=== PATIENT | female | born 1985 | race Caucasian/White ===

== ENCOUNTER 2016-08-02 16:55 | Emergency (ER) | payer OTHER ==
[~2016-08-02] VITALS: Ht 167.6 cm; Wt 65.0 kg
[2016-08-02 18:41] VITALS: BP 113/69; PULSE 81; RESP 16; TEMP 98.5; O2SAT 99
--- NOTE | 2016-08-02 19:00 | PD ---
HPI Chief Complaint: Anxiety Time Seen by Provider: 18:55 Travel History International Travel<30 days: No Contact w/Intl Traveler<30days: No Traveled to known affect area: No History of Present Illness HPI 31-year-old female presents to the emergency Department voluntarily for psychiatric evaluation. The patient states that over the past 2 weeks she's had worsening anxiety. States that she has been unable to sleep due to stressful dreams. Patient states that she has been having dreams that her is cheating on her and then she wakes up and believes that they are true and becomes very angry and upset. The patient states that she does have a history of depression for which she was previously treated with Lexapro but stopped this medication 2 months ago because she did not want to take medication for her depression. States that she has instead been going to regular counseling with a psychologist, last saw her psychologist 5 days ago. She denies any suicidal or homicidal ideations. Denies any attempts to harm herself, no ingestion of substances. Denies any drug or alcohol use. The patient states that her and her family convinced her to come in today because she is not acting like herself, she is becoming more paranoid and anxious. The patient's reports that she wakes up in the middle of the night and paces for hours. The patient's states that the patient's father had a history of schizophrenia and he is concerned that she may also have this condition. The patient denies any medical complaints. Denies , last menstrual period 1 week ago. No other complaints. PFSH Past Medical History Depression: Yes ?: Unknown Social History Alcohol Use: No Tobacco Use: No Substance Use: No Allergies-Medications (Allergen,Severity, Reaction): Coded Allergies: Estrogens (Verified Allergy, Severe, 08/02/16) Tramadol (Verified Allergy, Severe, 08/02/16) Reported Meds & Prescriptions Reported Meds & Active Scripts Active No Active Prescriptions or Reported Medications Review of Systems Except as stated in HPI: all other systems reviewed are Neg Physical Exam Narrative GENERAL: Well-nourished and well-developed pleasant patient in no acute distress who is nontoxic appearing. SKIN: Warm and dry. HEAD: Normocephalic and atraumatic. EYES: No injection, drainage, or hyphema noted. PERRLA. EOMI. ENT: No nasal drainage noted. Oropharynx is clear. NECK: Supple and the trachea is midline. CARDIOVASCULAR: Regular rate and rhythm. RESPIRATORY: Breath sounds are equal bilaterally with no accessory muscle use, wheezing, rhonchi, or crackles. GASTROINTESTINAL: Abdomen is soft, non-tender, and nondistended. MUSCULOSKELETAL: No obvious deformities, swelling, cyanosis, or ecchymosis is present throughout the upper and lower extremities. Patient has full range of motion without any signs of neurovascular compromise. NEUROLOGICAL: Awake, alert, and oriented. Normal speech and gait. Cranial nerves are grossly intact. PSYCHIATRIC: No delusional thought processes. No hallucinations. Data Data Last Documented VS Vital Signs Date Time Temp Pulse Resp B/P Pulse Ox O2 Delivery O2 Flow Rate FiO2 08/03/16 06:42 79 18 120/69 99 Room Air 08/02/16 18:41 98.5 Orders Complete Blood Count With Diff (08/02/16 18:54) Comprehensive Metabolic Panel (08/02/16 18:54) Drug Screen, Random Urine (08/02/16 18:54) Ed Urine Pregnancytest Poc (08/02/16 18:54) Alcohol (Ethanol) (08/02/16 18:54) Psych Screen (08/02/16 18:54) Diet Regular Basic (08/03/16 Breakfast) Labs Laboratory Tests Test 08/02/16 19:20 White Blood Count 8.9 TH/MM3 Red Blood Count 4.10 MIL/MM3 Hemoglobin 12.3 GM/DL Hematocrit 36.4 % Mean Corpuscular Volume 88.8 FL Mean Corpuscular Hemoglobin 30.0 PG Mean Corpuscular Hemoglobin 33.8 % Concent Red Cell Distribution Width 13.3 % Platelet Count 280 TH/MM3 Mean Platelet Volume 9.2 FL Neutrophils (%) (Auto) 61.1 % Lymphocytes (%) (Auto) 27.5 % Monocytes (%) (Auto) 10.0 % Eosinophils (%) (Auto) 1.1 % Basophils (%) (Auto) 0.3 % Neutrophils # (Auto) 5.4 TH/MM3 Lymphocytes # (Auto) 2.4 TH/MM3 Monocytes # (Auto) 0.9 TH/MM3 Eosinophils # (Auto) 0.1 TH/MM3 Basophils # (Auto) 0.0 TH/MM3 CBC Comment DIFF FINAL Differential Comment Sodium Level 141 MEQ/L Potassium Level 3.5 MEQ/L Chloride Level 105 MEQ/L Carbon Dioxide Level 28.4 MEQ/L Anion Gap 8 MEQ/L Blood Urea Nitrogen 5 MG/DL Creatinine 0.59 MG/DL Estimat Glomerular Filtration 117 ML/MIN Rate Random Glucose 86 MG/DL Calcium Level 8.7 MG/DL Total Bilirubin 0.3 MG/DL Aspartate Amino Transf 15 U/L (AST/SGOT) Alanine Aminotransferase 21 U/L (ALT/SGPT) Alkaline Phosphatase 53 U/L Total Protein 7.3 GM/DL Albumin 4.0 GM/DL Urine Opiates Screen NEG Urine Barbiturates Screen NEG Urine Amphetamines Screen NEG Urine Benzodiazepines Screen NEG Urine Cocaine Screen NEG Urine Cannabinoids Screen NEG Ethyl Alcohol Level LESS THAN 3 MG/DL MDM Medical Decision Making Medical Screen Exam Complete: Yes Emergency Medical Condition: Yes Differential Diagnosis Differential: Depression versus adjustment reaction versus anxiety versus PTSD versus psychosis NOS versus mood disorder NOS versus substance induced mood disorder versus ODD versus adjustment reaction versus schizophrenia versus bipolar disorder versus schizoaffective versus electrolyte abnormality Narrative Course Patient presents voluntarily for psychiatric evaluation. Physical examination and vital signs are essentially unremarkable. Patient has no medical complaints to report. She is here on a voluntary basis and is not a harm to herself or others. Therefore I do not feel that the patient meets Markham act criteria. Psych screen has been ordered. If the laboratory results are unremarkable, the patient will be medically cleared for psychiatric evaluation and disposition. Diagnosis Primary Impression: Mood disorder Scripts No Active Prescriptions or Reported Meds Lacy Holden Aug 02, 2016 19:00
[2016-08-02 20:02] LABS: AMPHETAMINE, URINE NEG (NEG); BARBITURATES, URINE NEG (NEG); COCAINE, URINE NEG (NEG)
[2016-08-02 20:17] LABS: AUTOMATED NEUTROPHIL # 5.4 TH/MM3 (1.8-7.7); BASOPHIL % 0.3 % (0.0-2.0); EOSINOPHIL # 0.1 TH/MM3 (0-0.4); EOSINOPHIL % 1.1 % (0.0-4.0); HEMATOCRIT 36.4 % (35.0-46.0); HEMO FLAGS DIFF FINAL; LYMPH % 27.5 % (9.0-44.0); LYMPHOCYTE # 2.4 TH/MM3 (1.0-4.8); MEAN CELL VOLUME 88.8 FL (80.0-100.0); MEAN CORPUSCULAR HGB CONC 33.8 % (32.0-36.0); NEUT % 61.1 % (16.0-70.0); PLATELET COUNT 280 TH/MM3 (150-450); RED CELL DISTRIBUTION WIDTH 13.3 % (11.6-17.2); WHITE BLOOD COUNT 8.9 TH/MM3 (4.0-11.0)
[2016-08-02 20:32] LABS: ANION GAP 8 MEQ/L (5-15); AST (GOT) 15 U/L (15-37); BICARBONATE 28.4 MEQ/L (21.0-32.0); BLOOD UREA NITROGEN 5 MG/DL (7-18); CHLORIDE 105 MEQ/L (98-107); GLOMERULAR FILTRATION RATE 117 ML/MIN (>89); POTASSIUM 3.5 MEQ/L (3.5-5.1); SODIUM (NA) 141 MEQ/L (136-145)
[2016-08-02 20:36] LABS: ALKALINE PHOSPHATASE 53 U/L (45-117); ALT (GPT) 21 U/L (10-53); TOTAL BILIRUBIN ADULT 0.3 MG/DL (0.2-1.0)
[2016-08-02 21:05] VITALS: BP 119/80; PULSE 80; RESP 20; O2SAT 99
[2016-08-02 22:07] VITALS: BP 129/69; PULSE 79; RESP 18; O2SAT 98
[2016-08-03 02:25] VITALS: BP 118/69; PULSE 80; RESP 18; O2SAT 98
[2016-08-03 06:42] VITALS: BP 120/69; PULSE 79; RESP 18; O2SAT 99
--- NOTE | 2016-09-08 20:58 | HHI.PYPN ---
Subjective Remarks Patient was seen today for reevaluation, She was found in the recreational area of the unit watching TV, she states she is not talking to me "because I fired you", still very paranoid and disorganized, refusing to take medications. Review of Systems Other No somatic complains Objective Alert: Yes [place]: Person, Place, Date Mood: Angry Affect: Labile Memory Intact: Immediate, Recent, Remote Hallucinations: Other (None) Delusions: Yes Delusion Type: Paranoid Suicidal: Ideation (denies) Homicidal: Ideation (denies) Insight/Judgement absent Assessment & Plan Problem List: (1) Schizophrenia ICD Code: F20.9 Assessment & Plan Estimated LOS: days Justification for Cont. Inpt. Patient is acutely psychotic. Tu Chandra MD Sep 08, 2016 20:58
== END 2016-08-03 10:44 | disposition home or self-care (01) ==
LOC: NEPB 16:55 → NEPJ 08-03 10:44
DX: F39 Unspecified mood [affective] disorder (principal); F41.8 Other specified anxiety disorders
CPT/HCPCS: 80053; 80307; 80320; 84703; 85025; 99283

== ENCOUNTER 2016-08-31 11:45 | Inpatient (IN) | payer OTHER ==
[~2016-08-31] VITALS: Ht 167.6 cm; Wt 71.4 kg
[2016-08-31 13:15] VITALS: BP 120/68; PULSE 92; RESP 16; TEMP 98.6; O2SAT 98
--- NOTE | 2016-08-31 14:11 | PD ---
HPI Chief Complaint: Psychiatric Symptoms Time Seen by Provider: 14:05 Travel History International Travel<30 days: No Contact w/Intl Traveler<30days: No Traveled to known affect area: No History of Present Illness HPI 31-year-old female that presents to the ED for evaluation of psych evaluation. Patient has a history of mood disorder and apparently her look at her dairy and apparently there was some bizarre statements and they were concerned. Apparently patient was Markham acted by the physician but there is no signature on the Markham act and this unfortunate makes the Markham act invalid. She has no medical issues. She denies any pain of any kind. She denies any medical symptoms. Per patient she wants to stay here voluntarily to get evaluated as she wants to get to the bar as to why she was brought here. She denies any homicidal or suicidal ideation. No hallucinations. No drugs or alcohol. Her symptoms appear to be mild. Per Markham act apparently she does have some psychotic thoughts but they only manifesting her dairy. Unclear as to the length of symptoms. She denies any of this. She takes no medications. PFSH Past Medical History Depression: Yes Diabetes: No Diminished Hearing: No Seizures: No ?: Not Social History Alcohol Use: No Tobacco Use: No Substance Use: No (PT DENIES) Allergies-Medications (Allergen,Severity, Reaction): Coded Allergies: Estrogens (Verified Allergy, Severe, 08/31/16) Per pt. Tramadol (Verified Allergy, Severe, 08/31/16) Per pt. Reported Meds & Prescriptions Reported Meds & Active Scripts Active No Active Prescriptions or Reported Medications Review of Systems General / Constitutional: No: Fever, Chills, Weight Gain, Weight Loss, Other Eyes: No: Diploplia, Blurred Vision, Photophobia, Drainage, Redness, Foreign Body Sensation, Pain, Tearing, Blind Spots, Visual changes, Blindness, Other HENT: No: Headaches, Vertigo, Lightheadedness, Sore Throat, Rhinitis, Rhinorrhea, Congestion, Nosebleed, Neck Stiffness, Neck Pain, Masses, Gingival Bleeding, Dental Difficulties, Ear Discharge, Earache, Other Cardiovascular: No: Chest Pain or Discomfort, Palpitations, Irregular Rhythm, Tachycardia, Diaphoresis, Syncope, Dyspnea on exertion, Varicosities, Edema, Cyanosis, Varicosities, Phlebitis, Claudication, Other Respiratory: No: Cough, Shortness of Breath, Wheezing, Sneezing, Orthopnea, Hemoptysis, Stridor, Night Sweats, Pleuritic Pain, Other Gastrointestinal: No: Nausea, Vomiting, Diarrhea, Abdominal Pain, Hematemesis, Hematochezia, Constipation, Changes in Bowel Habits, Indigestion, Dysphagia, Loss of Appetite, Other Genitourinary: No: Urgency, Frequency, Dysuria, Nocturia, Hematuria, Decreased Urinary Output, Oliguria, Hesitancy, Dribbling, Incontinence, Pelvic Pain, Flank Pain, Dyspareunia, Discharge, Dysmenorrhea, Menorrhagia, Metorrhagia, Vaginal Bleeding, Other Musculoskeletal: No: Myalgias, Arthralgias, Limited ROM, Weakness, Cramping, Edema, Pain, Atrophy, Other Skin: No Rash, No Itching, No Dryness, No Lumps, No Hives, No Change in Pigmentation, No Change in nails, No Alopecia, No Lesions, No Breast Lumps, No Breast Tenderness, No Breast Swelling, No Other Neurologic: No: Weakness, Dizziness, Syncope, Focal Abnormalities, Coordination Problem, Tremor, Ataxia, Headache, Change in Mentation, Slurred Speech, Paresthesia, Incontinence, Seizures, Sensory Disturbance, Other Psychiatric: Positive: Disorder of Thought (??? per markham act), No: Anxiety, Depression, Suicidal Ideations, Mood Disorder, Substance Abuse, Homicidal Ideation, Other Endocrine: No: Heat Intolerance, Cold Intolerance, Polyuria, Polydipsia, Other Hematologic/Lymphatic: No: Easy Bruising, Lymph Node Enlargement, Other Physical Exam Narrative GENERAL: SKIN: Warm and dry. HEAD: Atraumatic. Normocephalic. EYES: Pupils equal and round. No scleral icterus. No injection or drainage. ENT: No nasal bleeding or discharge. Mucous membranes pink and moist. Tongue is midline. No uvula deviation. NECK: Trachea midline. No JVD. CARDIOVASCULAR: Regular rate and rhythm. No murmurs, S3, S4. RESPIRATORY: No accessory muscle use. Clear to auscultation. Breath sounds equal bilaterally. GASTROINTESTINAL: Abdomen soft, non-tender, nondistended. Hepatic and splenic margins not palpable. MUSCULOSKELETAL: Extremities without clubbing, cyanosis, or edema. No obvious deformities. Full range of motion of the upper and lower extremities bilaterally. 2+ pulses bilaterally. NEUROLOGICAL: Awake and alert. No obvious cranial nerve deficits. Motor grossly within normal limits. Five out of 5 muscle strength in the arms and legs. Normal speech. PSYCHIATRIC: Appropriate mood and affect; insight and judgment normal. Data Data Last Documented VS Vital Signs Date Time Temp Pulse Resp B/P Pulse Ox O2 Delivery O2 Flow Rate FiO2 08/31/16 13:15 98.6 92 16 120/68 98 Room Air Orders Complete Blood Count With Diff (08/31/16 13:08) Comprehensive Metabolic Panel (08/31/16 13:08) Psych Screen (08/31/16 13:08) Drug Screen, Random Urine (08/31/16 13:08) Alcohol (Ethanol) (08/31/16 13:08) Labs Laboratory Tests Test 08/31/16 13:15 White Blood Count 12.4 TH/MM3 Red Blood Count 4.56 MIL/MM3 Hemoglobin 13.9 GM/DL Hematocrit 41.1 % Mean Corpuscular Volume 90.0 FL Mean Corpuscular Hemoglobin 30.5 PG Mean Corpuscular Hemoglobin 33.9 % Concent Red Cell Distribution Width 13.6 % Platelet Count 383 TH/MM3 Mean Platelet Volume 8.6 FL Neutrophils (%) (Auto) 83.9 % Lymphocytes (%) (Auto) 9.8 % Monocytes (%) (Auto) 5.8 % Eosinophils (%) (Auto) 0.1 % Basophils (%) (Auto) 0.4 % Neutrophils # (Auto) 10.4 TH/MM3 Lymphocytes # (Auto) 1.2 TH/MM3 Monocytes # (Auto) 0.7 TH/MM3 Eosinophils # (Auto) 0.0 TH/MM3 Basophils # (Auto) 0.0 TH/MM3 CBC Comment DIFF FINAL Differential Comment Sodium Level 138 MEQ/L Potassium Level 3.7 MEQ/L Chloride Level 102 MEQ/L Carbon Dioxide Level 27.6 MEQ/L Anion Gap 8 MEQ/L Blood Urea Nitrogen 6 MG/DL Creatinine 0.62 MG/DL Estimat Glomerular Filtration 111 ML/MIN Rate Random Glucose 88 MG/DL Calcium Level 9.7 MG/DL Total Bilirubin 0.4 MG/DL Aspartate Amino Transf 14 U/L (AST/SGOT) Alanine Aminotransferase 23 U/L (ALT/SGPT) Alkaline Phosphatase 56 U/L Total Protein 7.7 GM/DL Albumin 4.2 GM/DL Urine Opiates Screen NEG Urine Barbiturates Screen NEG Urine Amphetamines Screen NEG Urine Benzodiazepines Screen NEG Urine Cocaine Screen NEG Urine Cannabinoids Screen NEG Ethyl Alcohol Level LESS THAN 3 MG/DL MDM Medical Decision Making Medical Screen Exam Complete: Yes Emergency Medical Condition: Yes Medical Record Reviewed: Yes Interpretation(s) CBC & BMP Diagram 08/31/16 13:15 tox negative Differential Diagnosis Depression versus suicidal ideation versus anxiety versus adjustment disorder versus mood disorder versus bipolar disorder versus schizophrenia versus paranoid disorder versus psychosis versus substance abuse versus alcohol abuse versus alcohol induced psychosis versus homicidality addition versus cutting versus personality disorder Narrative Course 31-year-old female that presents to the ED for evaluation of psych. Patient was properly examined and was found to have no signs of acute medical distress. Patient apparently was Markham acted but it appears to be invalid secondary to her signatures. She does note that she wants to stay voluntarily for evaluation. Labs were drawn. Patient will be medically clear. Okay to be seen by psych. Mental health screening was discussed with the patient. Diagnosis Primary Impression: Mood disorder Scripts No Active Prescriptions or Reported Meds Alberto Guadalupe Aug 31, 2016 14:10
[2016-08-31 15:19] LABS: AUTOMATED NEUTROPHIL # 10.4 TH/MM3 (1.8-7.7); BASOPHIL % 0.4 % (0.0-2.0); EOSINOPHIL % 0.1 % (0.0-4.0); HEMATOCRIT 41.1 % (35.0-46.0); HEMO FLAGS DIFF FINAL; LYMPH % 9.8 % (9.0-44.0); LYMPHOCYTE # 1.2 TH/MM3 (1.0-4.8); MEAN CORPUSCULAR HEMOGLOBIN 30.5 PG (27.0-34.0); MEAN CORPUSCULAR HGB CONC 33.9 % (32.0-36.0); MONO % 5.8 % (0.0-8.0); NEUT % 83.9 % (16.0-70.0); PLATELET COUNT 383 TH/MM3 (150-450); RED BLOOD COUNT 4.56 MIL/MM3 (4.00-5.30); RED CELL DISTRIBUTION WIDTH 13.6 % (11.6-17.2); WHITE BLOOD COUNT 12.4 TH/MM3 (4.0-11.0)
[2016-08-31 15:24] LABS: AMPHETAMINE, URINE NEG (NEG); BARBITURATES, URINE NEG (NEG); COCAINE, URINE NEG (NEG)
[2016-08-31 15:32] LABS: ALT (GPT) 23 U/L (10-53); ANION GAP 8 MEQ/L (5-15); AST (GOT) 14 U/L (15-37); BICARBONATE 27.6 MEQ/L (21.0-32.0); BLOOD UREA NITROGEN 6 MG/DL (7-18); CHLORIDE 102 MEQ/L (98-107); GLOMERULAR FILTRATION RATE 111 ML/MIN (>89); POTASSIUM 3.7 MEQ/L (3.5-5.1); SODIUM (NA) 138 MEQ/L (136-145)
[2016-08-31 15:35] LABS: ALKALINE PHOSPHATASE 56 U/L (45-117); TOTAL BILIRUBIN ADULT 0.4 MG/DL (0.2-1.0)
[2016-08-31 16:14] VITALS: BP 138/95; PULSE 102; RESP 20; TEMP 97.6; O2SAT 98
--- NOTE | 2016-08-31 18:03 | PD ---
History of Present Illness Chief Complaint: Psychiatric Symptoms Time Seen by Provider: 16:30 Travel History International Travel<30 Days: No Contact w/Intl Traveler<30days: No Known affected area: No Legal Status Legal Status: Markham Act History of Present Illness: History of Present Illness 31-year-old female with no reported psychiatric history that presents to the ED for evaluation of psych evaluation. The patient was brought to Ed under a BA initiated by her PCP, Dr. Khan who has been her PCP x 5 years. He did not see the patient but read a copy of her journal which was brought in by her and he had enough concern for the patient that he initiated the BA. I later received a call from Dr. Macdonald who states that Dr. Khan consulted him on this case and he felt the patient needed to be seen by psychiatry JORY. Dr. Macdonald has an appointment with the patient on Wednesday. As per EMR review this patient was seen in ED in July on a voluntary basis for evaluation of reported extreme anxiety, not sleeping for a few weeks, constant thoughts of her suspicion that her was cheating on him. At the time of that evaluation she did not meet criteria for BA and was discharged from the Ed. Patient is seen in J pod. Awake, alert and oriented. She is mildly agitated. She perseveres on the BA not being binding and legal and she repeats several times " I am not suicidal or homicidal'. She admits to not sleeping for several days but goes back to " I'm not suicidal or homicidal". I have reviewed with her her journal entries in which she talks about being watched, being photographed and about being followed by sex trafficking ring, being in danger of being abducted, She claims that all the writings are her account of dreams that she has. There are also some entries about waiting for Prince Rausch and a magazine. Again she claims that these are her dreams. I spoke with the patient's with her verbal consent. He reports that she has not been sleeping well for the past weeks, she paces most of the night sleeping 1- 2 hours, she beliefs that she is Prince Rausch's daughter and was switched at , that she beliefs she was going to be abducted on Wednesday and planned to confront her boss today and commit suicide. She was agitated this morning and left for work at 5:30 and doesn't begin work until 8:30. He was frightened as she brought some mirror installer fluid in the house to light a candle.He also became concerned with his safety as one night he woke up when she tried to take off his C pap mask while he was sleeping. I am informed by Ashwini sommers RN that patient told her that she was a [place] spy and that someone was trying to destroy her journal. PFSH Past Medical History Depression: Yes Diabetes: No Patient Takes Glucophage: No Diminished Hearing: No Kidney Stones: Yes (Hx per pt.) Seizures: No Tetanus Vaccination: > 5 Years Influenza Vaccination: No ?: Not LMP: 08/25/16 : 0 Para: 0 Miscarriage: 0 : 0 Past Surgical History Surgical History: No Previous Surgery Psychiatric History Psychiatric History Hx Psychiatric Treatment: Was prescribed Lexapro for 4 years but has not taken it in several weeks. History of Inpatient Treatment: No Guns or firearms in home: No Social History x 5 years. Lives with her . 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 Hx Alcohol Use: No (Rarely. ) Hx Tobacco Use: No (Patient denies. ) Hx Substance Use: No (PT DENIES) Hx of Substance Use Treatment: No Family Psychiatric History Father dx w schizophrenia as per records Allergies-Medications (Allergen,Severity, Reaction): Coded Allergies: Estrogens (Verified Allergy, Severe, 08/31/16) Per pt. Tramadol (Verified Allergy, Severe, 08/31/16) Per pt. Reported Meds & Prescriptions Reported Meds & Active Scripts Active No Active Prescriptions or Reported Medications Review of Systems Except as stated in HPI: all other systems reviewed are Neg Psychiatric: COMPLAINS OF: Anxiety, Delusions MDM Medical Decision Making Medical Record Reviewed: Yes Assessment/Plan 31 year old female who is placed under a BA for potential for harm to self or others. At this time the patient presents with not sleeping, fixed delusions that she is being followed by a sex trafficking ring, that she is going to be abducted and that she is the daughter of Prince Rausch. Patient is denying this and reports it as dreams but is visibly impacted by these thoughts or dreams. The patient initially accepted voluntary admission but then asked to leave. She is in need of inpatient treatment for further observation, initiate medication and stabilization. Orders Complete Blood Count With Diff (08/31/16 13:08) Comprehensive Metabolic Panel (08/31/16 13:08) Psych Screen (08/31/16 13:08) Drug Screen, Random Urine (08/31/16 13:08) Alcohol (Ethanol) (08/31/16 13:08) Diet Regular Basic (08/31/16 Dinner) Results Vital Signs Date Time Temp Pulse Resp B/P Pulse Ox O2 Delivery O2 Flow Rate FiO2 08/31/16 16:14 97.6 102 20 138/95 98 Room Air 08/31/16 13:15 98.6 92 16 120/68 98 Room Air Laboratory Tests Test 08/31/16 13:15 White Blood Count 12.4 Red Blood Count 4.56 Hemoglobin 13.9 Hematocrit 41.1 Mean Corpuscular Volume 90.0 Mean Corpuscular Hemoglobin 30.5 Mean Corpuscular Hemoglobin 33.9 Concent Red Cell Distribution Width 13.6 Platelet Count 383 Mean Platelet Volume 8.6 Neutrophils (%) (Auto) 83.9 Lymphocytes (%) (Auto) 9.8 Monocytes (%) (Auto) 5.8 Eosinophils (%) (Auto) 0.1 Basophils (%) (Auto) 0.4 Neutrophils # (Auto) 10.4 Lymphocytes # (Auto) 1.2 Monocytes # (Auto) 0.7 Eosinophils # (Auto) 0.0 Basophils # (Auto) 0.0 CBC Comment DIFF FINAL Differential Comment Sodium Level 138 Potassium Level 3.7 Chloride Level 102 Carbon Dioxide Level 27.6 Anion Gap 8 Blood Urea Nitrogen 6 Creatinine 0.62 Estimat Glomerular Filtration 111 Rate Random Glucose 88 Calcium Level 9.7 Total Bilirubin 0.4 Aspartate Amino Transf 14 (AST/SGOT) Alanine Aminotransferase 23 (ALT/SGPT) Alkaline Phosphatase 56 Total Protein 7.7 Albumin 4.2 Urine Opiates Screen NEG Urine Barbiturates Screen NEG Urine Amphetamines Screen NEG Urine Benzodiazepines Screen NEG Urine Cocaine Screen NEG Urine Cannabinoids Screen NEG Ethyl Alcohol Level LESS THAN 3 Diagnosis Primary Impression: Delusional disorder Additional Impression: Mood disorder Admitting Information Admitting Physician Requests: Admit (Dr. Vasques) Prescriptions No Active Prescriptions or Reported Meds Problem Qualifiers Essie Laura Aug 31, 2016 18:02
[2016-08-31] MEDS ORDERED: MAGNESIUM HYDROXIDE SUSP 30 ML CUP PO PRN (18:15)
[2016-08-31] MEDS ORDERED: ACETAMINOPHEN 325 MG TAB PO PRN (18:15)
[2016-08-31] MEDS ORDERED: ALUMINUM/MAGNESIUM/SIMETH 30 ML CUP PO PRN (18:15)
[2016-08-31] MEDS ORDERED: QUEtiapine FUMARATE 100 MG TAB PO SCH (21:00)
[2016-08-31 21:35] VITALS: BP 154/72; PULSE 105; RESP 18; TEMP 98.2; O2SAT 97
[2016-09-01 05:38] VITALS: BP 117/68; PULSE 87; RESP 16; TEMP 97.6; O2SAT 87
[2016-09-01 07:59] LABS: ANION GAP 8 MEQ/L (5-15); BICARBONATE 27.8 MEQ/L (21.0-32.0); BLOOD UREA NITROGEN 9 MG/DL (7-18); CHLORIDE 104 MEQ/L (98-107); GLOMERULAR FILTRATION RATE 90 ML/MIN (>89); POTASSIUM 3.9 MEQ/L (3.5-5.1); SODIUM (NA) 140 MEQ/L (136-145)
[2016-09-01 08:09] LABS: HDL CHOLESTEROL 69.2 MG/DL (40.0-60.0); LDL CHOLESTEROL 46 MG/DL (0-99)
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
[2016-09-01 15:57] LABS: HEMOGLOBIN A1a 1.5 %; HEMOGLOBIN A1b 1.4 %; HEMOGLOBIN Ao 87.3 %; HEMOGLOBIN LA1C 1.6 %
[2016-09-01] MEDS ORDERED: QUEtiapine FUMARATE 100 MG TAB PO ONE (17:00)
[2016-09-02 06:28] VITALS: BP 129/82; PULSE 105; RESP 18; TEMP 97.7; O2SAT 98
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
[2016-09-02] MEDS ORDERED: HALOPERIDOL LACTATE 5 MG/ML AMP IM PRN (13:45)
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
[2016-09-02 18:59] VITALS: BP 135/74; PULSE 100; RESP 18; TEMP 98.3; O2SAT 97
[2016-09-03 05:00] VITALS: BP 125/85; PULSE 92; RESP 18; TEMP 98.9; O2SAT 98
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
[2016-09-03 18:45] VITALS: BP 124/79; PULSE 98; RESP 18; TEMP 98.1; O2SAT 98
[2016-09-04 05:11] VITALS: BP 125/73; PULSE 108; RESP 18; TEMP 98.2; O2SAT 98
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
[2016-09-04 18:52] VITALS: BP 128/86; PULSE 98; RESP 18; TEMP 98.3; O2SAT 99
[2016-09-05 05:57] VITALS: BP 114/77; PULSE 89; RESP 17; TEMP 98.3; O2SAT 98
--- NOTE | 2016-09-05 15:52 | HHI.PYPN ---
Subjective Remarks Pt seen and discussed with staff. She continues to refuse food due to delusions that staff is trying to poison her. She states that she drinks from the sink in her room because it won't make her sick. She states that she is a small person and hospital food will make her ill. She is very paranoid and thought process is illogical. She continues to refuse medications stating that she does not need them. No SI/HI. Objective Alert: Yes [place]: Person Mood: Angry Affect: Other (euphoric) Memory Intact: Immediate, Recent Hallucinations: Other (she denies) Delusions: Yes Delusion Type: Paranoid, Other (persecutory) Suicidal: Ideation (she denies) Homicidal: Ideation (she denies) Insight/Judgement very poor Vitals/IOs Vital Signs Date Time Temp Pulse Resp B/P Pulse Ox O2 Delivery O2 Flow Rate FiO2 09/05/16 05:57 98.3 89 17 114/77 98 Assessment & Plan Problem List: (1) Unspecified psychosis ICD Code: F29 Assessment & Plan Continue to encourage medication compliance and oral intake. Will monitor closely for signs of dehydration. Will check labs. Estimated LOS: days Justification for Cont. Inpt. impairments in reality construction. Beryl Hollingsworth MD Sep 05, 2016 15:52
[2016-09-05 18:50] VITALS: BP 126/82; PULSE 89; RESP 17; TEMP 98.4; O2SAT 99
[2016-09-06 05:32] VITALS: BP 118/68; PULSE 84; RESP 17; TEMP 98; O2SAT 100
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
[2016-09-06 18:30] VITALS: BP 131/64; PULSE 102; RESP 20; TEMP 98.8; O2SAT 97
[2016-09-07 05:04] VITALS: BP 119/76; PULSE 92; RESP 18; TEMP 98; O2SAT 99
[2016-09-07 17:27] VITALS: BP 115/22; PULSE 100; RESP 17; TEMP 98.3
[2016-09-08 05:34] VITALS: BP 113/72; PULSE 84; RESP 17; TEMP 98.7; O2SAT 99
[2016-09-08 20:47] VITALS: BP 110/70; PULSE 86; RESP 18; TEMP 97.5; O2SAT 98
[2016-09-09 05:09] VITALS: BP 107/73; PULSE 83; RESP 17; TEMP 98.4; O2SAT 100
--- NOTE | 2016-09-09 08:36 | HHI.PYPN ---
Subjective Remarks Late entry, entered by mistake on Visit [id number]: Patient was seen today for reevaluation, She was found in the recreational area of the unit watching TV, she states she is not talking to me "because I fired you", still very paranoid and disorganized, refusing to take medications. Review of Systems Other No Somatic complain Objective Alert: Yes [place]: Person, Place, Date Mood: Calm Affect: Flat Memory Intact: Immediate, Recent Hallucinations: Other (she denies) Delusions: Yes Delusion Type: Paranoid, Other (persecutory) Suicidal: Ideation (she denies) Homicidal: Ideation (she denies) Insight/Judgement poor Vitals/IOs Vital Signs Date Time Temp Pulse Resp B/P Pulse Ox O2 Delivery O2 Flow Rate FiO2 09/09/16 05:09 98.4 83 17 107/73 100 Assessment & Plan Problem List: (1) Unspecified psychosis ICD Code: F29 Assessment & Plan Estimated LOS: days Justification for Cont. Inpt. Patient is acutely psychotic Tu Chandra MD Sep 09, 2016 08:36
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
[2016-09-09 18:35] VITALS: BP 136/83; PULSE 107; RESP 18; TEMP 97.9; O2SAT 100
[2016-09-10 06:17] VITALS: BP 112/68; PULSE 83; RESP 16; TEMP 98.2
--- NOTE | 2016-09-10 13:18 | HHI.PYPN ---
Subjective Remarks Patient was seen today for psychiatric evaluation along with nurse in charge, the patient refused to speak with me stating that she fired me yesterday and I am not longer her psychiatrist. She says that she doesn't trust me and she doesn't trust anybody in the unit. Patient became physically agitated, but she was verbally de-escalate by behavioral health assistances. In the unit the patient has been increasingly guarded, paranoid toward staff, is sleeping with doors lack with a chair behind the door, yesterday she was pacing back and forward in the unit halls, at times was seen talking to herself. Consistently refusing medications. She was taken to [place] [facility] today which she was deemed by Clay Molder incompetent to make decisions and required to continue involuntary psychiatric admission for stabilization. I had a long conversation with her in which he added that he has been dealing with patient paranoia for about 4 months now. He explains that her disorganized behavior, speech, thought , paranoia and delusions of being the daughter of [place], being cheated by her , and being spied are relatively new. But, now that he has been thinking, the patient in the last 6 month has been obsessed with jealousy, hyper gnosticism, more talkative than usual, sleeping very poorly at night, spending a lot of time thinking in bed before going to sleep. He thought that this was kind of normal behavior, but he clarifies that he was a different behavior than what he met her and was a huge change for were depressed and she was a year ago. After a family meeting in recent days, her brothers and other members of her family stated that this presentation is very similar to her father's symptomatology of schizophrenia. Review of Systems Other No somatic symptoms Objective Alert: Yes [place]: Person, Place, Date Mood: Calm Affect: Flat Memory Intact: Immediate, Recent Hallucinations: Other (she denies) Delusions: Yes Delusion Type: Paranoid, Other (persecutory) Suicidal: Ideation (she denies) Homicidal: Ideation (she denies) Insight/Judgement poor insight Vitals/IOs Vital Signs Date Time Temp Pulse Resp B/P Pulse Ox O2 Delivery O2 Flow Rate FiO2 09/10/16 06:17 98.2 83 16 112/68 09/09/16 18:35 100 Intake and Output 09/09/16 09/09/1617 08:00 16:00 00:00 Intake Total 360 ml Balance 360 ml Assessment & Plan Problem List: (1) Unspecified psychosis ICD Code: F29 (2) Schizophreniform disorder Assessment & Plan: On psychiatric evaluation patient is still remain acutely psychotic, with prominent paranoia towards staff, toward her , toward her family, toward food. At times agitated, with disorganized behavior and speech, a marked impairment in reality testing and difficulties to differentiate from what is real to what is not and progressive loss of ego boundaries. Patient has been consistently refusing medication stating that the medication is poison for her and we are trying to overdose her. Today in [place] she was deemed no capacity to make decisions and a [facility] medical claims representative would be making decisions in her best interest. By a conversation with her , and other information in the record, patient has been presenting obsessive/delusional ideas now for about 6 months, with a prodromal state consistent in hyperreligiosity, decreased sensitivity to rejection, severe anxiety, decreased need to sleep, isolation, increased jealousy with her and bizarre ideas about [place], and [place]. Given her significant family history of schizophrenia in her father's line, including her father and 2 uncles, her current presentation, and also collateral information, the diagnosis schizophrenia is highly suspicious in this patient, but due to the lack of precision in the duration of the picture, will is still consider as a primary diagnosis of schizophreniform disorder. Will continue Risperdal 1 mg liquid, to increase the possibility of compliance, twice a day, with the goal of potential transition and to either Risperdal Consta or Invega Sustenna. Will continue with Haldol 5 mg IM every 8 hours when necessary aggressive behavior and agitation Close monitor of behavior and mood, continue encouraging the patient to be compliance with medications and to integrate in group activities Patient will be with [facility] medical claims representative ICD Code: F20.81 Assessment & Plan Estimated LOS: days Justification for Cont. Inpt. Patient is to continue psychiatric hospitalization for stabilization and safety. Tu Chandra MD Sep 10, 2016 13:18
--- NOTE | 2016-09-10 13:24 | HHI.PYPN ---
Subjective Remarks Patient was seen today for psychiatric reevaluation, patient was calm, cooperative, pleasant, she is states that she has been feeling well, denies depression, denies anxiety, denies perceptual disturbances, she is fully oriented 3, she denies suicidal or homicidal ideation, she denies visual and auditory hallucinations. No behavioral dysregulation, agitation, disruptive behavior, that has been an issue in the past, reported by the nurses in the last 24 hours. Patient has been showing good response to psychotropics, compliant with hemodialysis and her medications. Patient states that she is motivated to follow medical recommendations and take her medications and be discharge to [facility]. Review of Systems Other No somatic complaints Objective Alert: Yes [place]: Person, Place, Date Mood: Calm Affect: Flat Memory Intact: Immediate, Recent Hallucinations: Other (she denies) Delusions: Yes Delusion Type: Paranoid, Other (persecutory) Suicidal: Ideation (she denies) Homicidal: Ideation (she denies) Insight/Judgement fair Vitals/IOs Vital Signs Date Time Temp Pulse Resp B/P Pulse Ox O2 Delivery O2 Flow Rate FiO2 09/10/16 06:17 98.2 83 16 112/68 09/09/16 18:35 100 Intake and Output 09/09/16 09/09/16 09/10/16 08:00 16:00 00:00 Intake Total 360 ml Balance 360 ml Assessment & Plan Problem List: (1) Unspecified psychosis ICD Code: F29 (2) Schizophreniform disorder Assessment & Plan: Patient has showed good response to psychotropics, no behavioral or mood dysregulation, agitation or aggressive behavior observed or reported. Will continue Risperdal 3 mg twice a day. ICD Code: F20.81 Assessment & Plan Estimated LOS: days Justification for Cont. Inpt. Coordination of a safe discharge, awaiting placement to [facility]. Tu Chandra MD Sep 10, 2016 13:24
[2016-09-10 18:11] VITALS: BP 109/75; PULSE 104; RESP 17; TEMP 98.4; O2SAT 97
[2016-09-11 05:36] VITALS: BP 127/71; PULSE 82; RESP 18; TEMP 98.2; O2SAT 100
[2016-09-11 19:41] VITALS: BP 133/68; PULSE 99; RESP 18; TEMP 98; O2SAT 97
[2016-09-12 05:25] VITALS: BP 111/74; PULSE 83; RESP 18; TEMP 98.1; O2SAT 99
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
[2016-09-12 19:56] VITALS: BP 122/75; PULSE 88; RESP 18; TEMP 96.1; O2SAT 98
[2016-09-13 05:49] VITALS: BP 110/73; PULSE 76; RESP 18; TEMP 98.4; O2SAT 100
[2016-09-13 18:36] VITALS: BP 116/72; PULSE 86; RESP 18; TEMP 98.6; O2SAT 100
[2016-09-14 06:32] VITALS: BP 104/73; PULSE 78; RESP 17; TEMP 98; O2SAT 97
--- NOTE | 2016-09-14 12:33 | EKG ---
Date Performed: 09/13/2016 Time Performed: 18:30:48 PTAGE: 31 years EKG: Sinus rhythm POSSIBLE RIGHT VENTRICULAR CONDUCTION DELAY BORDERLINE ECG NO PREVIOUS TRACING DOCTOR: Dg Burgos Interpretating Date/Time 09/14/2016 12:30:22
[2016-09-14 19:52] VITALS: BP 122/69; PULSE 92; RESP 18; TEMP 97.9; O2SAT 98
[2016-09-15 05:59] VITALS: BP 111/72; PULSE 82; RESP 19; TEMP 98; O2SAT 99
[2016-09-15 21:21] VITALS: BP 116/76; PULSE 72; RESP 19; TEMP 97.9; O2SAT 99
[2016-09-16 05:54] VITALS: BP 115/81; PULSE 76; RESP 16; TEMP 97.7; O2SAT 98
[2016-09-16 18:00] VITALS: BP 112/69; PULSE 81; RESP 16; TEMP 98.2; O2SAT 100
[2016-09-17 05:42] VITALS: BP 111/69; PULSE 71; RESP 18; TEMP 98.6; O2SAT 99
[2016-09-17 18:47] VITALS: BP 119/76; PULSE 80; RESP 18; TEMP 98.2; O2SAT 100
[2016-09-18 05:26] VITALS: BP_SYST 105; BP_SYST 108; BP_DIAS 64; BP_DIAS 67; PULSE 74; PULSE 83; RESP 16; RESP 18; TEMP 98.5; O2SAT 92; O2SAT 99
--- NOTE | 2016-09-18 07:20 | MB ---
cc: RADHA CHEN DATE OF CONSULTATION: 09/17/2016 REASON FOR CONSULTATION Abnormal electrocardiogram, clearance for psychiatric meds. BRIEF HISTORY This is a 31-year-old female without prior history of any significant medical problems. She has no prior history of any heart disease. She presents with progressive anxiety and paranoia. There was discussion about initiating Geodon in addition to Risperdal. An electrocardiogram was performed which was read as sinus rhythm with some possible right ventricular conduction delay. We are consulted for further recommendations regarding clearance for administration of meds. ALLERGIES 1. ESTROGENS. 2. TRAMADOL. FAMILY HISTORY Denies any family history of early coronary artery disease or sudden cardiac . SOCIAL HISTORY Lives in [place]. Denies any alcohol, tobacco or drug use. REVIEW OF SYSTEMS A 12-point review of systems was performed and otherwise negative except as noted in the history of present illness. PHYSICAL EXAMINATION VITAL SIGNS: Temperature 97, blood pressure 117/68 mmHg. GENERAL: Alert and oriented x3, in no acute distress. HEENT: Pupils reactive to light and accommodation. Extraocular movements are intact. NECK: No jugular venous distention. No thyromegaly. No lymphadenopathy. No carotid bruits. LUNGS: Clear to auscultation bilaterally. CARDIOVASCULAR: Regular rate and rhythm without murmurs, rubs or gallops. ABDOMEN: Nontender, nondistended. Good bowel sounds. No hepatosplenomegaly. EXTREMITIES: No clubbing, cyanosis or edema. Good peripheral pulses. NEUROLOGIC: Cranial nerves intact. Motor and sensory grossly intact. LABORATORY Unable to view labs now. The electronic medical record ([employer]) is down. ELECTROCARDIOGRAM Electrocardiogram shows sinus rhythm. QTC is measured at 378 milliseconds. ASSESSMENT Abnormal electrocardiogram. PLAN Electrocardiogram is reviewed. The right ventricular conduction delay is mentioned because there is R prime in V1 which is not clinically significant. The most concerning interaction related to Geodon administration in conjunction is prolongation of the QT interval. She has no congenital conduction disease. There are no contraindications at this point based on her current QTC interval for the administration of psychiatric medication. Would recommend daily EKG for the first three days of administration. If there is prolongation of the QTC greater than 500 milliseconds then discontinuation of the combination of drugs should be undertaken. There is no need for any further cardiovascular evaluation or workup. MD SILVIA Vegas/SHANNAN /12:10 PM /7:02 AM
[2016-09-18 19:28] VITALS: BP 116/74; PULSE 88; RESP 16; TEMP 98.6; O2SAT 100
--- NOTE | 2016-09-18 22:36 | EKG ---
Date Performed: 09/18/2016 Time Performed: 11:06:03 PTAGE: 31 years EKG: Sinus rhythm POSSIBLE RIGHT VENTRICULAR CONDUCTION DELAY BORDERLINE ECG PREVIOUS TRACING : 09/13/2016 18.30 DOCTOR: Yumiko Flores Interpretating Date/Time 09/18/2016 22:34:34
[2016-09-19 06:31] VITALS: BP 104/64; PULSE 77; RESP 18; TEMP 97.7; O2SAT 99
[2016-09-19] MEDS: ZIPRASIDONE HCL 20 MG CAP PO SCH ×3 (09:00→21:00)
[2016-09-19] MEDS ORDERED: ZIPRASIDONE MESYLATE 20 MG VIAL IM PRN (13:00)
[2016-09-19 19:00] VITALS: BP 120/72; PULSE 97; RESP 18; TEMP 98.3; O2SAT 98
--- NOTE | 2016-09-19 19:39 | EKG ---
Date Performed: 09/19/2016 Time Performed: 09:51:57 PTAGE: 31 years EKG: Sinus rhythm POSSIBLE RIGHT VENTRICULAR CONDUCTION DELAY Since previous tracing, no significant change noted PARKER LINA ECG PREVIOUS TRACING : 09/18/2016 11.06 DOCTOR: Thuan Baer Interpretating Date/Time 09/19/2016 19:38:17
[2016-09-20 06:31] VITALS: BP 95/64; PULSE 84; RESP 18; TEMP 97.5; O2SAT 98
--- NOTE | 2016-09-20 14:37 | EKG ---
Date Performed: 09/20/2016 Time Performed: 08:46:35 PTAGE: 31 years EKG: Sinus rhythm NORMAL ECG INTERPRETATION BASED ON A DEFAULT AGE OF 38 YEARS Compared to prior tracing no significan t change PREVIOUS TRACING : 09/19/2016 09.51 DOCTOR: Thuan Baer Interpretating Date/Time 09/20/2016 14:36:05
[2016-09-20 18:00] VITALS: BP 123/74; PULSE 75; RESP 18; TEMP 98.8
[2016-09-20] MEDS: ZIPRASIDONE HCL 20 MG CAP PO SCH (21:00)
[2016-09-21 06:03] VITALS: BP 119/79; PULSE 82; RESP 18; TEMP 98.2; O2SAT 99
[2016-09-21 19:58] VITALS: BP 118/85; PULSE 102; RESP 18; TEMP 98.5; O2SAT 100
[2016-09-21] MEDS: ZIPRASIDONE HCL 20 MG CAP PO SCH (21:00)
[2016-09-22] MEDS ORDERED: ZIPRASIDONE MESYLATE 20 MG VIAL IM PRN (14:30)
[2016-09-22] MEDS: ZIPRASIDONE HCL 20 MG CAP PO SCH (16:24)
[2016-09-22 19:04] VITALS: BP 126/83; PULSE 77; RESP 18; TEMP 98; O2SAT 100
[2016-09-23 06:29] VITALS: BP 108/57; PULSE 66; RESP 18; TEMP 98.5; O2SAT 99
[2016-09-23] MEDS: ZIPRASIDONE HCL 20 MG CAP PO SCH (16:23)
[2016-09-23 18:36] VITALS: BP 130/80; PULSE 96; RESP 18; TEMP 98.4; O2SAT 100
[2016-09-24 05:43] VITALS: BP 115/71; PULSE 86; RESP 16; TEMP 98.1; O2SAT 99
[2016-09-24] MEDS: ZIPRASIDONE HCL 20 MG CAP PO SCH (18:25)
[2016-09-24 20:03] VITALS: BP 124/80; PULSE 83; RESP 16; TEMP 98.3; O2SAT 95
[2016-09-25 05:37] VITALS: BP 102/62; PULSE 71; RESP 18; TEMP 98.1; O2SAT 97
[2016-09-25] MEDS: ZIPRASIDONE HCL 20 MG CAP PO SCH ×2 (09:45→17:52)
[2016-09-25 18:30] VITALS: BP 109/66; PULSE 95; RESP 16; TEMP 98.4; O2SAT 97
--- NOTE | 2016-09-25 20:05 | EKG ---
Date Performed: 09/24/2016 Time Performed: 13:38:12 PTAGE: 31 years EKG: Sinus rhythm POSSIBLE RIGHT VENTRICULAR CONDUCTION DELAY BORDERLINE ECG PREVIOUS TRACING : 09/20/2016 08.46 Compared to prior tracing no significant change DOCTOR: Mik Vasquez Interpretating Date/Time 09/25/2016 20:04:28
[2016-09-26 06:04] VITALS: BP 116/63; PULSE 73; RESP 16; TEMP 97.9; O2SAT 99
[2016-09-26] MEDS: ZIPRASIDONE HCL 20 MG CAP PO SCH ×2 (08:59→17:41)
[2016-09-26 18:00] VITALS: BP 126/67; PULSE 89; RESP 16; TEMP 98.7; O2SAT 100
[2016-09-27 06:29] VITALS: BP 104/59; PULSE 70; RESP 18; TEMP 98; O2SAT 99
[2016-09-27] MEDS: ZIPRASIDONE HCL 20 MG CAP PO SCH ×2 (09:40→18:20)
[2016-09-27 17:48] VITALS: BP 130/77; PULSE 86; RESP 18; O2SAT 100
--- NOTE | 2016-09-27 18:57 | EKG ---
Date Performed: 09/26/2016 Time Performed: 20:04:22 PTAGE: 31 years EKG: Sinus rhythm Compared to prior tracing no significant change NORMAL ECG PREVIOUS TRACING : 09/24/2016 13.38 DOCTOR: Kennedy Aguilar Interpretating Date/Time 09/27/2016 18:55:39
[2016-09-27 20:21] VITALS: BP 130/77; PULSE 86; RESP 16; O2SAT 100
[2016-09-28 05:07] VITALS: BP 98/62; PULSE 61; RESP 18; TEMP 97.8; O2SAT 99
[2016-09-28] MEDS: ZIPRASIDONE HCL 20 MG CAP PO SCH ×2 (09:12→17:14)
[2016-09-28 16:43] VITALS: BP 124/69; PULSE 84; RESP 18; TEMP 97.9; O2SAT 99
[2016-09-29 05:44] VITALS: BP 108/56; PULSE 76; RESP 17; TEMP 98; O2SAT 98
[2016-09-29] MEDS: ZIPRASIDONE HCL 20 MG CAP PO SCH ×2 (08:49→18:18)
[2016-09-29 21:54] VITALS: BP 123/71; PULSE 82; TEMP 98.4; O2SAT 95
[2016-09-30 05:58] VITALS: BP 105/64; PULSE 60; RESP 18; TEMP 97.2; O2SAT 97
[2016-09-30] MEDS: ZIPRASIDONE HCL 20 MG CAP PO SCH ×2 (08:40→17:47)
[2016-09-30 18:49] VITALS: BP 112/66; PULSE 82; RESP 18; TEMP 98.1; O2SAT 100
--- NOTE | 2016-09-30 20:22 | EKG ---
Date Performed: 09/29/2016 Time Performed: 13:50:08 PTAGE: 31 years EKG: Sinus rhythm POSSIBLE RIGHT VENTRICULAR CONDUCTION DELAY BORDERLINE ECG PREVIOUS TRACING : 09/26/2016 20.04 Compared to prior tracing no significant change DOCTOR: Herminio Pereira Interpretating Date/Time 09/30/2016 20:20:10
[2016-10-01 06:02] VITALS: BP 110/64; PULSE 71; RESP 16; TEMP 97.5; O2SAT 98
[2016-10-01] MEDS: ZIPRASIDONE HCL 20 MG CAP PO SCH ×2 (08:23→17:47)
[2016-10-01 20:17] VITALS: BP 107/67; PULSE 73; RESP 16; TEMP 98.5; O2SAT 100
[2016-10-02 06:32] VITALS: BP 122/76; PULSE 80; RESP 18; TEMP 98.7; O2SAT 95
[2016-10-02] MEDS: ZIPRASIDONE HCL 20 MG CAP PO SCH ×2 (08:27→18:00)
--- NOTE | 2016-10-02 12:33 | HHI.PYPN ---
Subjective Remarks Patient seen in her room with nurse Camp, covering for Dr. rose, chart review. Patient laying in bed calm pleasant cooperative with me though showing little insight into her illness. Stating she is compliant with medications though she sees no significant benefit from them. She continues to show agreement with and perhaps anticipation related to her referral to the [facility]. Review of Systems Except as stated in HPI: all other systems reviewed are Neg Constitutional: DENIES: Diaphoretic episodes, Fatigue, Fever, Weight gain, Weight loss, Chills, Dizziness, Change in appetite, Night Sweats Endocrine: DENIES: Abnorml menstrual pattern, Heat/cold intolerance, Polydipsia , Polyuria, Polyphagia Eyes: DENIES: Blurred vision, Diplopia, Eye inflammation, Eye pain, Vision loss , Photosensitivity, Double Vision Ears, nose, mouth, throat: DENIES: Tinnitus, Hearing loss, Vertigo, Nasal discharge, Oral lesions, Throat pain, Hoarseness, Ear Pain, Running Nose, Epistaxis, Sinus Pain, Toothache, Odynophagia Respiratory: DENIES: Apneas, Cough, Snoring, Wheezing, Hemoptysis, Sputum production, Shortness of breath Cardiovascular: DENIES: Chest pain, Palpitations, Syncope, Dyspnea on Exertion , PND, Lower Extremity Edema, Orthopnea, Claudication Musculoskeletal: DENIES: Joint pain, Muscle aches, Stiffness, Joint Swelling, Back pain, Neck pain Integumentary: DENIES: Abnormal pigmentation, Pruritus, Rash, Nail changes, Breast masses, Breast skin changes, Nipple discharge Hematologic/lymphatic: DENIES: Bruising, Lymphadenopathy Immunologic/allergic: DENIES: Eczema, Urticaria Neurologic: DENIES: Abnormal gait, Headache, Localized weakness, Paresthesias, Seizures, Speech Problems, Tremor, Poor Balance Psychiatric: COMPLAINS OF: Delusions Objective Alert: Yes Economy: Person, Place, Date Mood: Calm Affect: Flat Memory Intact: Immediate, Recent Hallucinations: Other (she denies) Delusions: Yes Delusion Type: Paranoid, Other (persecutory) Suicidal: Ideation (she denies) Homicidal: Ideation (she denies) Insight/Judgement Poor Vitals/IOs Vital Signs Date Time Temp Pulse Resp B/P Pulse Ox O2 Delivery O2 Flow Rate FiO2 10/02/16 06:32 98.7 80 18 122/76 95 Assessment & Plan Problem List: (1) Unspecified psychosis ICD Code: F29 (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 Inpt. At this time patient will decompensate if placed in a lower level of care Discharge Planning To be determined Brian Vasques MD Oct 02, 2016 12:33
[2016-10-02 19:23] VITALS: BP 118/70; PULSE 85; RESP 16; TEMP 98.2; O2SAT 98
[2016-10-03 06:19] VITALS: BP 108/60; PULSE 74; RESP 18; TEMP 98.7; O2SAT 95
[2016-10-03] MEDS: ZIPRASIDONE HCL 20 MG CAP PO SCH ×2 (09:17→18:00)
[2016-10-03 18:24] VITALS: BP 113/67; PULSE 107; RESP 18; TEMP 98.1; O2SAT 95
[2016-10-04 05:05] VITALS: BP 107/68; PULSE 76; RESP 18; TEMP 97.5; O2SAT 97
[2016-10-04] MEDS: ZIPRASIDONE HCL 20 MG CAP PO SCH (09:35)
[2016-10-04] MEDS ORDERED: PILL SPLITTER OTHER PRN (12:45)
[2016-10-04] MEDS: ZIPRASIDONE HCL 60 MG CAP PO SCH (17:45)
[2016-10-04 18:13] VITALS: BP 110/70; PULSE 83; RESP 18; TEMP 97.4; O2SAT 98
[2016-10-04] MEDS: LORATADINE 10 MG TAB PO SCH (19:52)
[2016-10-05 05:05] VITALS: BP 111/59; PULSE 75; RESP 16; TEMP 98.9; O2SAT 97
[2016-10-05] MEDS: ZIPRASIDONE HCL 60 MG CAP PO SCH ×2 (08:22→16:45)
[2016-10-05 19:45] VITALS: BP 121/70; PULSE 120; RESP 16; TEMP 98.7; O2SAT 99
[2016-10-05] MEDS: LORATADINE 10 MG TAB PO SCH (21:25)
[2016-10-06 05:59] VITALS: BP 117/59; PULSE 78; RESP 16; TEMP 98.6; O2SAT 96
[2016-10-06] MEDS: ZIPRASIDONE HCL 60 MG CAP PO SCH ×2 (09:37→17:26)
[2016-10-06 17:28] VITALS: BP 109/72; PULSE 88; RESP 16; TEMP 98.9; O2SAT 98
[2016-10-06] MEDS: LORATADINE 10 MG TAB PO SCH (20:16)
[2016-10-07 04:00] VITALS: BP 114/68; PULSE 77; RESP 18; TEMP 99.3; O2SAT 96
[2016-10-07] MEDS: ZIPRASIDONE HCL 60 MG CAP PO SCH ×2 (08:57→18:08)
[2016-10-07 19:32] VITALS: BP 136/77; PULSE 98; RESP 18; TEMP 98
[2016-10-07] MEDS: LORATADINE 10 MG TAB PO SCH (20:38)
[2016-10-08 06:22] VITALS: BP 121/86; PULSE 75; RESP 18; TEMP 98; O2SAT 99
[2016-10-08] MEDS: ZIPRASIDONE HCL 60 MG CAP PO SCH ×2 (08:50→18:03)
[2016-10-08 19:02] VITALS: BP 123/89; PULSE 87; RESP 16; TEMP 98.3; O2SAT 98
[2016-10-09 06:09] VITALS: BP 124/76; PULSE 72; RESP 17; TEMP 98; O2SAT 99
[2016-10-09] MEDS: ZIPRASIDONE HCL 60 MG CAP PO SCH ×3 (09:34→18:18)
[2016-10-09 20:56] VITALS: BP 103/62; PULSE 83; RESP 16; TEMP 97.7; O2SAT 97
[2016-10-10 05:57] VITALS: BP 133/82; PULSE 85; RESP 15; TEMP 98.4; O2SAT 95
[2016-10-10] MEDS: ZIPRASIDONE HCL 60 MG CAP PO SCH ×2 (08:37→17:58)
[2016-10-10 18:00] VITALS: BP 136/92; PULSE 94; RESP 18; TEMP 98; O2SAT 98
[2016-10-10] MEDS: VALPROIC ACID SYRUP 250 MG/5 ML UDC PO SCH (21:31)
[2016-10-11 06:26] VITALS: BP 111/79; PULSE 79; RESP 16; TEMP 98.1; O2SAT 99
[2016-10-11] MEDS: ZIPRASIDONE HCL 60 MG CAP PO SCH ×2 (08:49→17:05)
[2016-10-11 18:33] VITALS: BP 111/74; PULSE 92; RESP 16; TEMP 98.4; O2SAT 97
[2016-10-11] MEDS: VALPROIC ACID SYRUP 250 MG/5 ML UDC PO SCH (21:33)
[2016-10-12 05:42] VITALS: BP 106/69; PULSE 76; RESP 17; TEMP 98.4; O2SAT 100
[2016-10-12] MEDS: ZIPRASIDONE HCL 60 MG CAP PO SCH ×2 (08:46→17:24)
[2016-10-12 16:58] VITALS: BP 121/68; PULSE 92; RESP 18; TEMP 98.4; O2SAT 98
[2016-10-12] MEDS: VALPROIC ACID SYRUP 250 MG/5 ML UDC PO SCH (21:00)
[2016-10-13 06:37] VITALS: BP 110/73; PULSE 80; RESP 18; TEMP 98; O2SAT 99
[2016-10-13 07:53] LABS: AUTOMATED NEUTROPHIL # 7.9 TH/MM3 (1.8-7.7); BASOPHIL % 0.4 % (0.0-2.0); EOSINOPHIL # 0.1 TH/MM3 (0-0.4); EOSINOPHIL % 0.7 % (0.0-4.0); HEMATOCRIT 36.5 % (35.0-46.0); HEMO FLAGS DIFF FINAL; LYMPH % 12.2 % (9.0-44.0); LYMPHOCYTE # 1.2 TH/MM3 (1.0-4.8); MEAN CELL VOLUME 89.7 FL (80.0-100.0); MEAN CORPUSCULAR HEMOGLOBIN 29.4 PG (27.0-34.0); MEAN CORPUSCULAR HGB CONC 32.7 % (32.0-36.0); MONO % 8.4 % (0.0-8.0); NEUT % 78.3 % (16.0-70.0); PLATELET COUNT 281 TH/MM3 (150-450); RED BLOOD COUNT 4.07 MIL/MM3 (4.00-5.30); RED CELL DISTRIBUTION WIDTH 13.2 % (11.6-17.2); WHITE BLOOD COUNT 10.1 TH/MM3 (4.0-11.0)
[2016-10-13 08:26] LABS: ALKALINE PHOSPHATASE 56 U/L (45-117); ALT (GPT) 15 U/L (10-53); ANION GAP 8 MEQ/L (5-15); AST (GOT) 10 U/L (15-37); BICARBONATE 28.4 MEQ/L (21.0-32.0); BLOOD UREA NITROGEN 11 MG/DL (7-18); CHLORIDE 104 MEQ/L (98-107); GLOMERULAR FILTRATION RATE 117 ML/MIN (>89); POTASSIUM 3.9 MEQ/L (3.5-5.1); SODIUM (NA) 140 MEQ/L (136-145); TOTAL BILIRUBIN ADULT 0.4 MG/DL (0.2-1.0)
[2016-10-13] MEDS: ZIPRASIDONE HCL 60 MG CAP PO SCH ×2 (08:51→17:10)
[2016-10-13 17:56] VITALS: BP 114/74; PULSE 84; RESP 18; TEMP 97.1; O2SAT 98
[2016-10-13] MEDS: VALPROIC ACID SYRUP 250 MG/5 ML UDC PO SCH (21:35)
[2016-10-14 05:58] VITALS: BP 112/74; PULSE 76; RESP 18; TEMP 98.2; O2SAT 98
[2016-10-14] MEDS: ZIPRASIDONE HCL 60 MG CAP PO SCH ×2 (09:30→18:05)
[2016-10-14 17:00] VITALS: BP 125/86; PULSE 87; RESP 18; TEMP 98; O2SAT 100
[2016-10-14] MEDS: VALPROIC ACID SYRUP 250 MG/5 ML UDC PO SCH (20:49)
[2016-10-15 05:23] VITALS: BP 107/80; PULSE 75; RESP 18; TEMP 98.3; O2SAT 99
[2016-10-15] MEDS: ZIPRASIDONE HCL 60 MG CAP PO SCH ×2 (08:51→17:13)
[2016-10-15] MEDS: VALPROIC ACID SYRUP 250 MG/5 ML UDC PO SCH (21:05)
[2016-10-15 21:51] VITALS: BP 126/79; PULSE 82; RESP 18; TEMP 97.2; O2SAT 98
[2016-10-16 06:23] VITALS: BP 119/72; PULSE 80; RESP 18; TEMP 97.3; O2SAT 97
[2016-10-16] MEDS: ZIPRASIDONE HCL 60 MG CAP PO SCH ×2 (09:00→18:00)
[2016-10-16 19:25] VITALS: BP 131/87; PULSE 78; RESP 18; TEMP 98.7; O2SAT 99
[2016-10-16] MEDS: VALPROIC ACID SYRUP 250 MG/5 ML UDC PO SCH (20:19)
[2016-10-17 06:29] VITALS: BP 107/69; PULSE 80; RESP 18; TEMP 98.2; O2SAT 100
[2016-10-17 07:04] LABS: AUTOMATED NEUTROPHIL # 5.7 TH/MM3 (1.8-7.7); BASOPHIL % 0.6 % (0.0-2.0); EOSINOPHIL # 0.1 TH/MM3 (0-0.4); EOSINOPHIL % 0.8 % (0.0-4.0); HEMATOCRIT 36.2 % (35.0-46.0); HEMO FLAGS DIFF FINAL; LYMPH % 19.5 % (9.0-44.0); LYMPHOCYTE # 1.6 TH/MM3 (1.0-4.8); MEAN CELL VOLUME 89.2 FL (80.0-100.0); MEAN CORPUSCULAR HEMOGLOBIN 30.5 PG (27.0-34.0); MEAN CORPUSCULAR HGB CONC 34.2 % (32.0-36.0); MONO % 8.5 % (0.0-8.0); NEUT % 70.6 % (16.0-70.0); PLATELET COUNT 264 TH/MM3 (150-450); RED BLOOD COUNT 4.06 MIL/MM3 (4.00-5.30); RED CELL DISTRIBUTION WIDTH 13.6 % (11.6-17.2)
[2016-10-17 07:30] LABS: ALT (GPT) 14 U/L (10-53); ANION GAP 8 MEQ/L (5-15); AST (GOT) 6 U/L (15-37); BICARBONATE 25.6 MEQ/L (21.0-32.0); BLOOD UREA NITROGEN 12 MG/DL (7-18); CHLORIDE 109 MEQ/L (98-107); GLOMERULAR FILTRATION RATE 125 ML/MIN (>89); POTASSIUM 4.1 MEQ/L (3.5-5.1); SODIUM (NA) 143 MEQ/L (136-145)
[2016-10-17 07:32] LABS: ALKALINE PHOSPHATASE 55 U/L (45-117); TOTAL BILIRUBIN ADULT 0.2 MG/DL (0.2-1.0)
[2016-10-17] MEDS: ZIPRASIDONE HCL 60 MG CAP PO SCH ×2 (09:15→18:00)
[2016-10-17] MEDS: VALPROIC ACID SYRUP 250 MG/5 ML UDC PO SCH (20:34)
[2016-10-17 21:35] VITALS: BP 116/75; PULSE 89; RESP 16; TEMP 98.1; O2SAT 97
[2016-10-18 07:19] VITALS: BP 113/68; PULSE 68; RESP 18; TEMP 98; O2SAT 98
[2016-10-18] MEDS: ZIPRASIDONE HCL 60 MG CAP PO SCH ×2 (09:15→18:32)
[2016-10-18 18:05] VITALS: BP 126/70; PULSE 70; RESP 18; TEMP 97.8; O2SAT 99
[2016-10-18] MEDS: VALPROIC ACID SYRUP 250 MG/5 ML UDC PO SCH (21:05)
[2016-10-19 06:17] VITALS: BP 112/72; PULSE 71; RESP 17; TEMP 97.9; O2SAT 98
[2016-10-19] MEDS: ZIPRASIDONE HCL 60 MG CAP PO SCH (08:39)
[2016-10-19] MEDS ORDERED: GEOD60CA PO (13:08)
[2016-10-19] MEDS ORDERED: DEPA500T3 PO (13:08)
[2016-10-19] MEDS ORDERED: DIVALPROEX SODIUM E.R. 500 MG TAB PO SCH (21:00)
--- NOTE | 2016-10-19 21:46 | M3 ---
cc: JIMY KLEIN M.D. ADMISSION DATE: 08/31/2016 DISCHARGE DATE: 10/19/2016 ADMISSION DIAGNOSIS [place] I: Possible bipolar affective disorder, hypomanic phase. Possible schizoaffective disorder. [place] II: No diagnosis. [place] III: No diagnosis. [place] IV: Severity of psychosocial stressors moderate i.e. possible marital discord. [place] V: Current GAF score 30. DISCHARGE DIAGNOSIS [place] I: Bipolar affective disorder, manic phase with psychotic symptoms. [place] II: No diagnosis. [place] III: No diagnosis. [place] IV: Severity of psychosocial stressors moderate i.e. possible marital discord. [place] V: GAF score 60. HISTORY This 31-year-old white female was admitted to this unit under the [place] ACT due to increasing delusions. In my absence in Dr. Cantor admitted her and followed her up until 09/11/2016. From the information I gathered from Dr. Cantor she was extremely delusional initially refusing to eat food, believing it was poison, very preoccupied delusions in regards to her having an extramarital affair, believing that she was daughter of Prince Rausch etc. She was totally opposed to taking any medications and as such was presented to the technical operations manager and was ordered retained and a guardian advocate was appointed. Please refer to my initial evaluation and evaluation of Dr. Cantor for further details. It should be mentioned that at one point she made negative remarks towards Dr. Cantor and did not wish to see him anymore. The nursing staff reported that she would walk away from them as well as from Dr. Cantor if approached. LABORATORY FINDINGS CBC with differential was done on different dates and on 10/17 was unremarkable. CMP was also reported on different dates and on 10/17 was unremarkable. Her liver enzymes specifically were normal. TSH was normal. Plasma valproic acid was monitored and 10/13 was 11. The dose of Depakote was increased and repeated on 10/17 it was 48. Urine drug screen was negative. Blood alcohol level was less than 3. EKG was monitored on different dates. Initially on 09/18/2016 it showed right ventricular conduction delay and per the patient's insistence a cardiology consult was obtained from Dr. Socrates Pérez. He did not see any cardiac contraindications to a trial of Geodon but recommended monitoring the EKG for 3 days after initiation of the therapy. This was done and all of her subsequent EKGs were unremarkable. HOSPITAL COURSE When initially evaluated by me she was very preoccupied with delusions mostly pertaining to her and she believed he was having an extramarital affair with her mother. Her thoughts were observed to be quite illogical and irrational. Despite best efforts he remained totally opposed to taking any type of psychotropic medications. I discussed this situation with her guardian advocate as well and she was supportive of administering Geodon intramuscularly if she refused p.o. She was thoroughly educated about the risks, benefits and alternatives of this particular medication but she remained opposed to taking it. As such at one point the intramuscular injection was ordered. However, she agreed to take the p.o. Geodon. The dose of this was gradually titrated up to 120 mg per day. No significant side effects were noticed. However, she remained quite delusional which not only were persecutory in nature but were also grandiose i.e. she believed that she belonged to [employer] because her "toes were long", she was able to communicate with angels because she herself was an magaly, believed that she was daughter of Dandre Soto, etc. So at this time adding Depakene was considered and she was educated about it. Another issue that was identified was her inability to sleep at night and her pacing all around the hallway. Again these were felt to be indicative of sarai even though she did not present with hyper-verbosity or rapid or pressures speech. She did acknowledge racing thoughts. When the addition of Depakene there was noticeable improvement in her grandiosity and overall interaction with the staff as well as with her peers. Her was invited to the treatment team meeting to obtain input from him and to explain the treatment approach, etc. It should be mentioned that in view of her refusal to take medications the team felt transfer to [facility] should be considered. I discussed this with the patient's also. For some strange reason Ms. Chinchilla insisted on transfer to the [facility] as well. However with addition of Depakene this all changed. She became quite pleasant and her delusions subsided over the following week. Her interaction with her improved significantly and the paranoia surrounding him also subsided. Her seemed quite pleased with the progress she had started making and on one occasion remarked "I got my back." The patient no longer was focused on transfer to [facility] and instead preferred returning home. I discussed the discharge plans with her and he indicated that they both will be staying with his parents for the next couple of months, and then she would gradually resume her job at [employer]. The team felt that she has received optimum benefit out of this admission and could be discharged home with concurrence of the patient as well as her . It is worth mentioning that throughout this hospital stay she did not exhibit any aggressive or self-destructive behavior. I had reviewed the case with Dr. Macdonald her outpatient psychiatrist and he will be following her. At the time of discharge she is denying any suicidal or homicidal ideations. Her psychotic symptoms have subsided. She is verbalizing motivation to continue on her medications and comply with her outpatient follow up with Dr. Macdonald. She is also recommended to follow up with the staple shear operator. MEDICATIONS Her discharge medications are: 1. Depakote ER 500 mg p.o. q.h.s. #15. 2. Geodon 60 mg p.o. b.i.d. #30. She is recommended to have repeat CBC with differential, CMP, plasma Depakene level in one week, the reports of which are to be sent to her outpatient psychiatrist Dr. Macdonald and her primary care physician. Jimy Klein MD HK/KK /7:41 PM /8:41 PM
== END 2016-10-19 15:45 | disposition home or self-care (01) | DRG 885 ==
LOC: NEPJ 11:45 → NEDA 18:06 → H260 21:38
PROVIDERS: ADMIT Psychiatry & Neurology Psychiatry; ATTEND Psychiatry & Neurology Psychiatry
DX: F31.2 Bipolar disorder, current episode manic severe with psychotic features (principal); R94.31 Abnormal electrocardiogram [ECG] [EKG]; Z88.8 Allergy status to other drugs, medicaments and biological substances
CPT/HCPCS: 80048; 80053; 80061; 80164; 80307; 80320; 83036; 84443; 85025; 93005; 99284; J3486